=== PATIENT | female | born 1985 | race African-American/Black ===

== ENCOUNTER 2019-02-24 14:58 | Inpatient (IN) | payer OTHER ==
[~2019-02-24] VITALS: Ht 160 cm; Wt 98.4 kg
[2019-02-24] VITALS (14 sets, daily range): BP systolic 93–128; BP diastolic 54–82
[2019-02-24] MEDS: valACYclovir HCL 500 MG TAB PO SCH (09:00)
[2019-02-24] MEDS ORDERED: PRENTAB9 PO (15:30)
[2019-02-24] MEDS ORDERED: LACTATED RINGER'S 1000 ML IV PRN (16:00)
[2019-02-24] MEDS ORDERED: miSOPROStol 25 MCG 1/4 TAB (S0191) As Ordered ONE (16:24)
--- NOTE | 2019-02-24 16:29 | HPEPDOC ---
Obstetrical History & Physical General Date of Admission Feb 24, 2019 at 14:58 History of Present Illness 33 yo at 41+0 weeks gestation with LAURA of [id number] by 8+3 week US on presents to L&D today for an IOL for late term . She reports feeling well and has no complaints today. She denies any vaginal bleeding, pelvic pain, or leakage of fluid. She has had mild intermittent contractions but nothing significant. She endorses regular movement. She is a sickle cell carrier but the FOB is negative for the sickle cell gene. In addition her is complicated by excessive weight gain (62 lbs, with current BMI 38) and a history of HSV. She hasn't had an outbreak for >1 year and was not placed on prophylaxis at 36 weeks this . She denies any current lesions or prodromal symptoms. Chief Complaint: Induction of labor Information Provided By: Patient Age: 33 : 4 Term: 3 Pre-term: 0 Abortions: 0 Livin Care Care: Good Care Dating Final EDC: February 17, 2019 Final EDC for Daily Update: February 17, 2019 Final EDC by: 1st trimester (US) (LAURA by 8+3 week US on [id number] (unknown LMP)) Antepartum Course Diagnos(e)s Excessive weight in (62 lbs with current BMI of 38) Sickle cell carrier --> FOB negative History of HSV Past Medical History Past Obstetrical History : Past Obstetrical History: Multigravida ( X3 all after 41 weeks, pelvis proven to 9lb) Type of Delivery: Spontaneous Vaginal Del. 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 Has not been on prophlyaxis starting at 36 weeks for this ) Past Medical History Medical History Sickle cell carrier Genital HSV history (not outbreak for >1year) Surgical History: Breast augmentation, Other (Eye surgery, cleft lip repair) Family History Significant Family History: No pertinent family hx Social History Marital Status: Family situation: Spouse/partner home Psychosocial History: No pertinent psych hx * Smoker: non-smoker Alcohol: Denies Drugs: denies Imunizations Tdap status: current Influenza Status: current Allergies Coded Allergies: No Known Allergies (Verified Allergy, Unknown, 02/24/19) Medications Scheduled No.137/Iron/Folic Acd ( Vitamin Tablet) 1 Each Tablet, 1 TAB PO DAILY Physical Examination Physical Examination Chaperoned by L&D RN GENERAL: Alert and oriented times three. ABDOMEN: Gravid and non-tender to touch. FETUS: Is vertex (VTX) by sterile vaginal examination (SVE) EXTREMITIES: No edema. PELVIC EXAM: Normal external female genitalia. No evidence of HSV on external exam. Speculum exam revealed no evidence of HSV in vagina or cervix or anywhere internally. Bedside TAUS: SIUP in cephalic presentation. Vital Signs/I&O Vital Signs Date Time Temp Pulse Resp B/P (MAP) Pulse Ox O2 Delivery O2 Flow Rate FiO2 02/24/19 15:28 98.4 87 16 115/64 (81) Laboratory Data [facility] Laboratory Tests 2 02/24/19 15:06: Serology Scanned Report Hepatitis B Testing Urine Culture: No Growth Pertinent Laboratoy Data Blood Type: O+ RBC Antibody Screen: Negative HIV: Negative Hepatitis B: Negative Hepatitis C: Unknown Rapid Plasma Reagin: Nonreactive Rubella: Immune Varicella: Immune Chlamydia/Gonorrhea: Negative Group B Streptococcus: Negative Quad Screen Test: Unknown Cystic Fibrosis: Negative Glucose Tolerance Test: 107 Anatomy Ultrasound Placenta Location: Anterior Normal Anatomy: Yes Placenta Previa: No Steroid Therapy Steroid Therapy: No Vaginal Examination Dilation: 1cm Effacement: 40% Station: -3 Cervical Consistency: Medium Cervical Position: Posterior Presentation: Cephalic presentation Position: Vertex (occiput) Assessment Heart Rate (FHR): 130 Variability: Moderate Accelerations: Positive Decelerations: None Tocometer Contractions: No Assessment/Plan Assessment 33 yo at 41+0 weeks gestation presents for IOL for late term . Plan Admit for IOL. Apply IV fluids. No evidence of HSV on exam and no prodromal symptoms. Last outbreak >1 year ago. She is a candidate for vaginal delivery. Since she hasn't been on prophylaxis, will administer valtrex on admission. Cervix unfavorable. IOL started with cobb bulb with 60ml saline intrauterine side and PO cytotec. IV analgesia PRN. Epidural when desired in active labor. Regular diet. Anticipate . All patient questions answered. DO LARON Loving CHRISTOPHER J. DO Feb 24, 2019 16:29
[2019-02-24] MEDS ORDERED: miSOPROStol 50 MCG 1/2 TAB (S0191) PO ONE (16:30)
[2019-02-24] MEDS ORDERED: OXYTOCIN DRIP 30 UNITS in APPROPRIATE DILUENT 1 EA IV SCH (17:00)
[2019-02-24] MEDS: LR 1,000 ML IV SCH ×2 (17:22→19:38)
[2019-02-24 17:23] LABS: HEMATOCRIT 34.3 % (36.0-47.0); HEMOGLOBIN 11.4 g/dl (12.0-15.5); MEAN CORPUSCULAR HEMOGLOBIN 27.3 pg (27.0-33.0); MEAN CORPUSCULAR HGB CONC 33.2 g/dl (32.0-36.5); MEAN CORPUSCULAR VOLUME 82.1 fl (80.0-96.0); PLATELET COUNT, AUTOMATED 145 10^3/uL (150-450); RED BLOOD COUNT 4.18 10^6/uL (4.00-5.40); WHITE BLOOD COUNT 8.1 10^3/uL (4.0-10.0)
--- NOTE | 2019-02-24 20:14 | IPNPDOC ---
Text Note Date of Service The patient was seen on 02/24/19. NOTE Perry bulb out, patient remains comfortable. Cervix: 4/80/-2. Bedside TAUS again confirms cephalic presentation. FHR Cat I with moderate variability, +accels, no decels. Contractions not quite in a good pattern. Pitocin at 8mU. Will continue to titrate to effect. Epidural when and if patient desires. Safe to proceed. Milton Larry DO VS,Isai, I+O VS, Isai, I+O Laboratory Tests 02/24/19 17:01 Red Blood Count 4.18, Mean Corpuscular Volume 82.1, Mean Corpuscular Hemoglobin 27.3, Mean Corpuscular Hemoglobin Concent 33.2, Red Cell Distribution Width 13.2 Vital Signs Date Time Temp Pulse Resp B/P (MAP) Pulse Ox O2 Delivery O2 Flow Rate FiO2 02/24/19 18:47 84 18 107/67 (80) 02/24/19 17:14 98.0 MILTON LARRY DO Feb 24, 2019 20:14
--- NOTE | 2019-02-24 23:26 | IPNPDOC ---
Text Note Date of Service The patient was seen on 02/24/19. NOTE Patient with worsening pain, though still coping well. Bloody show present. Some late decels on FHR tracing, so pitocin was halved. Ctx Q 2-3 mins. Cervix unchanged at 4/80/-2, still high in the pelvis. head palpated, and bedside TAUS again confirmed cephalic presenting . FHR tracing overall reassuring with moderate variability, +accels. Continue to monitor closely. Patient declines epidural at this time. Safe to proceed. DO Claudio VS,Isai, I+O VS, Isai, I+O Laboratory Tests 02/24/19 17:01 Red Blood Count 4.18, Mean Corpuscular Volume 82.1, Mean Corpuscular Hemoglobin 27.3, Mean Corpuscular Hemoglobin Concent 33.2, Red Cell Distribution Width 13.2 Vital Signs Date Time Temp Pulse Resp B/P (MAP) Pulse Ox O2 Delivery O2 Flow Rate FiO2 02/24/19 18:47 84 18 107/67 (80) 02/24/19 17:14 98.0 MILTON LARRY DO Feb 24, 2019 23:26
[2019-02-25] VITALS (31 sets, daily range): BP systolic 100–129; BP diastolic 55–75
[2019-02-25] MEDS: LR 1,000 ML IV SCH ×2 (01:44→09:08)
--- NOTE | 2019-02-25 06:09 | IPNPDOC ---
Text Note Date of Service The patient was seen on 02/25/19. NOTE Presented to room for assessment. Cervix: 5/80/-2. head well engaged. AROM performed productive of a small amount of bloody fluid. FHR has been Cat I. Progress has been slow through latent phase labor. Hopefully with AROM she will transition into active phase. Continue with pitocin. Safe to proceed. DO Claudio VS,Isai, I+O VS, Isai, I+O Laboratory Tests 02/24/19 17:01 Red Blood Count 4.18, Mean Corpuscular Volume 82.1, Mean Corpuscular Hemoglobin 27.3, Mean Corpuscular Hemoglobin Concent 33.2, Red Cell Distribution Width 13.2 Vital Signs Date Time Temp Pulse Resp B/P (MAP) Pulse Ox O2 Delivery O2 Flow Rate FiO2 02/25/19 03:46 83 117/68 (84) 02/25/19 02:48 18 02/25/19 01:16 98.2 I&O- Last 24 Hours up to 6 AM 02/25/19 06:00 Intake Total 2388 ml Output Total 880 ml Balance 1508 ml MILTON LARRY DO Feb 25, 2019 06:09
[2019-02-25] MEDS ORDERED: FENTANYL 2MCG/ML ROPIVACAINE 0.2% IN 0.9% NACL 100ML IVBAG As Ordered ONE (07:59)
[2019-02-25] MEDS: valACYclovir HCL 500 MG TAB PO SCH (09:20)
--- NOTE | 2019-02-25 09:28 | IPNPDOC ---
Text Note Date of Service The patient was seen on 02/25/19. NOTE Patient now more comfortable after receiving epidural. Cervix: 6-7/80/-1 per RN exam. Early decels, and a rare late decel, but moderate variability and overall reassuring. Patient progressing into active phase. Continue with pitocin. Safe to proceed. Milton Snyder DO VS,Gerardobonprince, I+O VS, Fishbone, I+O Laboratory Tests 02/24/19 17:01 Red Blood Count 4.18, Mean Corpuscular Volume 82.1, Mean Corpuscular Hemoglobin 27.3, Mean Corpuscular Hemoglobin Concent 33.2, Red Cell Distribution Width 13.2 Vital Signs Date Time Temp Pulse Resp B/P (MAP) Pulse Ox O2 Delivery O2 Flow Rate FiO2 02/25/19 07:12 97.8 20 02/25/19 06:46 80 111/66 (81) I&O- Last 24 Hours up to 6 AM 02/25/19 06:00 Intake Total 2388 ml Output Total 880 ml Balance 1508 ml MILTON SNYDER DO Feb 25, 2019 09:28
[2019-02-25] MEDS ORDERED: EPIDURAL COMMENT XX SCH (09:45)
[2019-02-25] MEDS ORDERED: FENTANYL/ROPIVACAINE/NACL BAG 100 ML EPIDURAL SCH (09:45)
[2019-02-25] MEDS ORDERED: LACTATED RINGER'S 1000 ML IV PRN (09:45)
[2019-02-25] MEDS ORDERED: diphenhydrAMINE INJ 50MG/ML VIAL (J1200) IV PRN (09:45)
[2019-02-25] MEDS ORDERED: ONDANSETRON 4MG/2ML VIAL (J2405) IV PRN ×2 (09:45→10:45)
[2019-02-25] MEDS ORDERED: EPIDURAL/PCA KEYS XX PRN (09:45)
[2019-02-25] MEDS ORDERED: ePHEDrine SULFATE 25 MG/5 ML(5MG/ML) SYRINGE IV PRN (09:45)
[2019-02-25] MEDS ORDERED: REFRIGERATOR IV KEYS XX PRN (09:45)
[2019-02-25] MEDS ORDERED: NALOXONE INJ 0.4 MG/1 ML VIAL (J2310) IV PRN (09:45)
[2019-02-25] MEDS ORDERED: OXYTOCIN DRIP 30 UNITS in APPROPRIATE DILUENT 1 EA IV SCH (10:38)
[2019-02-25] MEDS ORDERED: DIBUCAINE 1% OINTMENT 30GM TOP PRN (10:45)
[2019-02-25] MEDS ORDERED: IBUPROFEN 600 MG TAB PO PRN (10:45)
[2019-02-25] MEDS ORDERED: RHOGAM 300 MCG (1500 IU) INJ (J2790) IM SCH (10:45)
[2019-02-25] MEDS ORDERED: ACETAMINOPHEN 500 MG TAB PO PRN (10:45)
[2019-02-25] MEDS ORDERED: ACETAMINOPHEN TAB 650MG DOSE (2X325MG) PO PRN (10:45)
[2019-02-25] MEDS ORDERED: DOCUSATE SODIUM 100 MG CAP PO PRN (10:45)
[2019-02-25] MEDS ORDERED: MEASLES,MUMPS,RUBELLA VACCINE INJ (MMR-II) (90707) SC SCH (10:45)
--- NOTE | 2019-02-25 10:46 | DNPDOC ---
[facility] Delivery Note Delivery Note DATE OF DELIVERY: 25Feb2019 at ~1015 PREDELIVERY DIAGNOSIS: 41+1 weeks gestation and and IOL for late term POST DELIVERY DIAGNOSIS: Delivered. 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 Snyder ANESTHESIA: Epidural ESTIMATED BLOOD LOSS: 300 mL. FINDINGS: Viable male infant weighing 8lbs 6oz, Apgars 8/9, loose nuchal cord, true knot in umbilical cord DELIVERY SUMMARY: Presented to room as patient was reporting a strong urge to push. Exam revealed fetus at +2 station. The bed was broken down and she was prepped for delivery. With excellent maternal pushing effort her infant delivered. Presentation was KATRIN with restitution to ROT. There was a loose nuchal cord that was delivered through and reduced manually. A true knot was also identified in the cord. The left anterior shoulder delivered with gentle traction followed easily by the remainder of the body. The infant was dried and stimulated on the field and a bulb suction was used. The infant was placed on the maternal abdomen and cried vigorously. The three vessel cord was then cl amped and cut by the FOB. Third stage was then completed with gentle traction on the cord and it was productive of an intact placenta. The uterine fundus was firmed with massage and pitocin was administered IV bolus. A small, midline 1st degree perineal laceration was identified. The laceration was then repaired with 3-0 vicryl suture in the usual fashion. There was excellent cosmesis and hemostasis. The fundus was palpated again and was firm. Sponge, instrument, and needle counts correct X2. Mother stable when I left the room. DO LARON Loving CHRISTOPHER J. DO Feb 25, 2019 10:46
[2019-02-25] MEDS: PRENATAL VITAMINS CHEWABLE TABLET PO SCH (13:11)
[2019-02-25] MEDS: IBUPROFEN 800 MG TAB PO PRN (20:32)
[2019-02-26 05:52] VITALS: BP 122/65
[2019-02-26] MEDS: IBUPROFEN 800 MG TAB PO PRN (05:53)
--- NOTE | 2019-02-26 07:07 | DS.PDOC ---
Discharge Summary General Date of Admission Feb 24, 2019 at 14:58 Date of Discharge February 26, 2019 Discharge Summary HOSPITAL COURSE: is a 33 yo G4 now P4 who underwent an uncomplicated on 25Feb2019 after being admitted for an IOL for late term . Her course has been unremarkable. On her day of discharge she met all appropriate discharge criteria. She was ambulating, voiding, tolerating a regular diet, had minimal lochia and her pain was well controlled with PO medications. Desires Nexplanon for contraception in the future. DISCHARGE MEDICATIONS: Please see below. ALLERGIES: Please see below. PHYSICAL EXAMINATION ON DISCHARGE: VITAL SIGNS: Please see below. GENERAL: AAOX3, sitting up in bed, NAD ABDOMINAL EXAMINATION: Fundus firm at U-2. No fundal tenderness. EXTREMITIES: No edema PSYCHIATRIC EXAMINATION: Affect appropriate. LABORATORY DATA: Please see below. ACTIVITY: Pelvic rest for 6 weeks. DIET: Regular DISCHARGE PLAN: Discharge home or to boarder DISPOSITION: Discharge home or to boarder on 26Feb2019. DISCHARGE INSTRUCTIONS: 1. pelvic rest for 6 weeks. ITEMS TO FOLLOWUP ON ON OUTPATIENT: 1. visit in 6 weeks DISCHARGE CONDITION: Stable. TIME SPENT ON DISCHARGE: Greater than 20 minutes. Milton Snyder DO Vital Signs/I&Os Vital Signs Date Time Temp Pulse Resp B/P (MAP) Pulse Ox O2 Delivery O2 Flow Rate FiO2 02/26/19 05:52 97.2 70 18 122/65 (84) 02/25/19 13:06 99 I&O- Last 24 Hours up to 6 AM 02/26/19 06:00 Intake Total 1400 ml Output Total 1100 ml Balance 300 ml Discharge Medications Scheduled No.137/Iron/Folic Acd ( Vitamin Tablet) 1 Each Tablet, 1 TAB PO DAILY, (Reported) Allergies Coded Allergies: No Known Allergies (Verified Allergy, Unknown, 02/24/19) MILTON SNYDER DO Feb 26, 2019 07:07
[2019-02-26] MEDS ORDERED: DIBU10OI TOP (07:10)
[2019-02-26] MEDS ORDERED: MIRA1POW3 PO (07:10)
[2019-02-26] MEDS ORDERED: IBUP80TA PO (07:10)
[2019-02-26] MEDS: PRENATAL VITAMINS CHEWABLE TABLET PO SCH (07:52)
[2019-02-26] MEDS ORDERED: PRENATAL VITAMINS CHEWABLE TABLET PO SCH (09:00)
--- NOTE | 2019-02-27 22:39 | IPN ---
DATE: 02/26/2019 This patient requested circumcision of her male after discussing risks and benefits of circumcision, the medical and nonmedical indications, the penile block and aftercare, expressed understanding penile block, aftercare and bleeding, signed the consent form. All questions were answered. 20-minute discussion. We await the clearance by the photovoltaic technician.
== END 2019-02-26 12:45 | disposition home or self-care (01) | DRG 807 ==
LOC: M LDI 14:58 → M OBS 02-25 12:58
PROVIDERS: ADMIT Obstetrics & Gynecology; ATTEND Obstetrics & Gynecology
PROC: 10S0XZZ Reposition Products of Conception, External Approach (ICD-10-PCS; 2019-02-24)
PROC: 3E0P7GC Introduction of Other Therapeutic Substance into Female Reproductive, Via Natural or Artificial Opening (ICD-10-PCS; 2019-02-24)
PROC: 10E0XZZ Delivery of Products of Conception, External Approach (ICD-10-PCS; principal; 2019-02-25)
PROC: 0HQ9XZZ Repair Perineum Skin, External Approach (ICD-10-PCS; 2019-02-25)
PROC: 10907ZC Drainage of Amniotic Fluid, Therapeutic from Products of Conception, Via Natural or Artificial Opening (ICD-10-PCS; 2019-02-25)
DX: O48.0 Post-term pregnancy (principal); Z37.0 Single live birth; O32.2XX0 Maternal care for transverse and oblique lie, not applicable or unspecified; Z3A.41 41 weeks gestation of pregnancy; O69.81X0 Labor and delivery complicated by cord around neck, without compression, not applicable or unspecified; O69.2XX0 Labor and delivery complicated by other cord entanglement, with compression, not applicable or unspecified; O70.0 First degree perineal laceration during delivery

== ENCOUNTER → 2020-02-15 | Outpatient (CLI) | payer OTHER ==
[~2020-02-15] MED LIST: DIBU10OI TOP; IBUP80TA PO; MIRA1POW3 PO; PRENTAB9 PO
--- NOTE | 2020-02-15 12:42 | REP ---
FIRST TRIMESTER ULTRASOUND: Real-time sonographic evaluation of the gravid uterus performed utilizing transabdominal and endovaginal technique. The uterus measures 8.1 x 5.6 x 5.4 cm. Gestational sac in the endometrial canal contains a 3 mm pole, which would correspond to an estimated gestational age of 5 weeks 6 days. No heart motion could be detected. Right ovary measures 3.1 x 2.5 x 3.6 cm and left ovary 2.3 x 1.4 x 2.2 cm. There is no evidence of ovarian torsion with duplex Doppler evaluation. Cystic structure in the right ovary represents a complex corpus luteum 1.7 x 1.4 x 1.5 cm. IMPRESSION: 3 mm pole in the endometrial canal within a gestational sac. There is no heart motion identified. This could represent demise. However, demise cannot be definitively diagnosed where there is no heart motion in a pole less than 7 mm in length. Recommend followup evaluation with serial quantitative beta hCG values and followup ultrasound as necessary. Electronically Signed by Sudheer Choudhary MD 02/15/2020 03:53 P
== END ==
LOC: M RAD 11:34
PROVIDERS: ATTEND Obstetrics & Gynecology
DX: O20.9 Hemorrhage in early pregnancy, unspecified (principal); N83.201 Unspecified ovarian cyst, right side; O34.81 Maternal care for other abnormalities of pelvic organs, first trimester; Z3A.01 Less than 8 weeks gestation of pregnancy

== ENCOUNTER 2020-02-26 10:04 | Day surgery (SDC) | payer OTHER ==
[~2020-02-26] VITALS: Ht 162.6 cm; Wt 81.6 kg
[2020-02-26 10:33] LABS: HEMATOCRIT 38.2 % (36.0-47.0); HEMOGLOBIN 12.7 g/dl (12.0-15.5); MEAN CORPUSCULAR HEMOGLOBIN 27.3 pg (27.0-33.0); MEAN CORPUSCULAR HGB CONC 33.2 g/dl (32.0-36.5); PLATELET COUNT, AUTOMATED 253 10^3/uL (150-450); RED BLOOD COUNT 4.66 10^6/uL (4.00-5.40); WHITE BLOOD COUNT 4.1 10^3/uL (4.0-10.0)
[2020-02-26] MEDS ORDERED: ceFAZolin SOD 1 GM in D5W MINI-BAG PLUS 50 ML IV SCH (10:45)
[2020-02-26] MEDS ORDERED: dexameTHASONE 4 MG/ML 1ML VIAL (J1100 PER 1MG) As Ordered ONE ×2 (10:57→11:43)
[2020-02-26] MEDS ORDERED: MIDAZOLAM INJ 2MG/2ML VIAL (J2250 PER 1MG) As Ordered ONE (10:57)
[2020-02-26] MEDS ORDERED: ONDANSETRON 4MG/2ML VIAL As Ordered ONE (10:57)
[2020-02-26] MEDS ORDERED: propofoL 200 MG/20 ML VIAL As Ordered ONE (10:57)
[2020-02-26] MEDS ORDERED: LIDOCAINE 2% 100MG/5ML SDV (FOR ANES.) As Ordered ONE (10:57)
[2020-02-26] MEDS ORDERED: KETOROLAC 60 MG/2 ML VIAL As Ordered ONE (10:57)
[2020-02-26] MEDS ORDERED: fentaNYL 250 MCG/5 ML INJECTION (J3010) As Ordered ONE (10:57)
[2020-02-26 11:05] LABS: APPEARANCE, URINE CLEAR (CLEAR); BACTERIA, URINE AUTO NEGATIVE (NEGATIVE); BILIRUBIN, URINE AUTO NEGATIVE (NEGATIVE); BLOOD, URINE BLOOD NEGATIVE (NEGATIVE); COLOR, URINE YELLOW (YELLOW); GLUCOSE, URINE (UA) AUTO NEGATIVE (NEGATIVE); KETONE, URINE AUTO NEGATIVE (NEGATIVE); LEUKOCYTE ESTERASE, URINE AUTO NEGATIVE (NEGATIVE); MUCUS, URINE SMALL (NEGATIVE); NITRITE, URINE AUTO NEGATIVE (NEGATIVE); PROTEIN, URINE AUTO NEGATIVE (NEGATIVE); RBC, URINE AUTO 1 /HPF (0-3); SPECIFIC GRAVITY URINE AUTO 1.012 (1.002-1.035); SQUAMOUS EPITHELIAL CELL UR AU 0 /HPF (0-6); UROBILINOGEN, URINE AUTO 0.2 mg/dL (0.0-2.0); WBC, URINE AUTO 0 /HPF (0-3)
[2020-02-26] MEDS ORDERED: LR 1,000 ML IV SCH (12:45)
[2020-02-26] MEDS ORDERED: HYDROMORPHONE HCL 0.5 MG/ 0.5 ML SYRINGE (J1170 PER 1) IV PRN (12:45)
[2020-02-26] MEDS ORDERED: ONDANSETRON 4MG/2ML VIAL IV PRN (12:45)
[2020-02-26] MEDS ORDERED: fentaNYL 100 MCG/2 ML INJECTION (J3010) IV PRN (12:45)
[2020-02-26] MEDS ORDERED: oxyCODONE 5MG TAB PO PRN (12:45)
[2020-02-26 13:50] VITALS: BP 126/75
== END 2020-02-26 14:06 | disposition home or self-care (01) ==
LOC: M SDC 10:04
PROVIDERS: ATTEND Obstetrics & Gynecology
DX: O02.1 Missed abortion (principal); Z86.19 Personal history of other infectious and parasitic diseases
CPT/HCPCS: 36415; 59820; 81001; 84702; 85027; 86850; 86900; 86901; 88305; J0690; J1100; J1885; J2250; J2405; J3010